=== PATIENT | female | born 1960 | race Caucasian/White ===

== ENCOUNTER → 2016-10-25 | Outpatient (CLI) | payer OTHER ==
--- NOTE | 2016-10-26 14:21 | MM ---
Reason for exam: screening (asymptomatic). Last mammogram was performed 1 year ago. History: Patient is postmenopausal. Family history of premenopausal breast cancer in mother at age 46 and breast cancer in grandmother at age 76. Excisional biopsy of the left breast, October 2002. Excisional biopsy of the right breast, January 1987. Physical Findings: A clinical breast exam by your physician is recommended on an annual basis and results should be correlated with mammographic findings. MG 3D Screening Mammo W/Cad Bilateral CC and MLO view(s) were taken. Prior study comparison: October 22, 2015, bilateral MG 3d screening mammo w/cad. September 16, 2014, bilateral MG screening mammo w CAD. September 05, 2013, bilateral digital screening mammo w/CAD. There are scattered fibroglandular densities. No significant changes when compared with prior studies. ASSESSMENT: Benign, BI-RAD 2 RECOMMENDATION: Routine screening mammogram of both breasts in 1 year.
== END | disposition home or self-care (01) ==
LOC: RADMAMWWP 09:33
PROVIDERS: ATTEND Family Medicine
DX: Z12.31 Encounter for screening mammogram for malignant neoplasm of breast (principal); Z80.3 Family history of malignant neoplasm of breast
CPT/HCPCS: 77063; G0202

== ENCOUNTER 2017-09-04 18:09 | Observation (INO) | payer BC, OTHER ==
[2017-09-04 20:04] LABS: Basophils % (A) 0 %; Eosinophils # (A) 0.1 k/uL (0-0.7); Eosinophils % (A) 1 %; HCT 43.1 % (34.0-46.0); HGB 14.7 gm/dL (11.4-16.0); Lymphocytes # (A) 1.2 k/uL (1.0-4.8); Lymphocytes % (A) 19 %; MCH 30.7 pg (25.0-35.0); MCV 90.4 fL (80.0-100.0); Mean Platelet Volume 7.7; Monocytes # (A) 0.3 k/uL (0-1.0); Monocytes % (A) 5 %; Neutrophils # (A) 4.9 k/uL (1.3-7.7); Neutrophils % (A) 74 %; Platelet Count 179 k/uL (150-450); RBC 4.77 m/uL (3.80-5.40); RDW 12.7 % (11.5-15.5); WBC 6.6 k/uL (3.8-10.6)
[2017-09-04 20:11] LABS: ALT 326 U/L (9-52); AST 441 U/L (14-36); Albumin 4.6 g/dL (3.5-5.0); Alkaline Phosphatase 136 U/L (38-126); Amylase 50 U/L (30-110); Anion Gap 11 mmol/L; Blood Urea Nitrogen 19 mg/dL (7-17); Calcium 10.2 mg/dL (8.4-10.2); Carbon Dioxide 28 mmol/L (22-30); Chloride 104 mmol/L (98-107); Glucose 100 mg/dL (74-99); Lipase 141 U/L (23-300); Potassium 4.2 mmol/L (3.5-5.1); Sodium 143 mmol/L (137-145); Total Bilirubin 1.7 mg/dL (0.2-1.3); Total Protein 7.7 g/dL (6.3-8.2)
[2017-09-04 20:12] LABS: Amorphous Sediment,Urine Occasional /hpf; Appearance,Urine Cloudy (Clear); Bacteria,Urine Occasional /hpf; Bilirubin,Urine Negative (Negative); Blood,Urine Negative (Negative); Color,Urine Yellow; Glucose,Urine (UA) Negative (Negative); Ketones,Urine Negative (Negative); Leukocyte Esterase,Urine Moderate (Negative); Mucus,Urine Rare /hpf; Nitrite,Urine Negative (Negative); Protein,Urine Negative (Negative); RBC,Urine 2 /hpf (0-5); Specific Gravity,Urine 1.012 (1.001-1.035); Squamous Epithelial Cell,Urine 4 /hpf (0-4); Urobilinogen,Urine <2.0 mg/dL (<2.0); WBC,Urine 18 /hpf (0-5)
[2017-09-04] MEDS ORDERED: KETOROLAC 30 MG/ML 1 ML VIAL IVP STA (20:58)
[2017-09-04] MEDS ORDERED: ONDANSETRON 4 MG/2 ML VIAL IVP STA (20:58)
[2017-09-04] MEDS ORDERED: SODIUM CHLORIDE 0.9% 1,000 ML IV ONE (20:58)
--- NOTE | 2017-09-04 21:01 | ED ---
General Adult HPI - General Chief complaint: Nausea/Vomiting/Diarrhea Stated complaint: Abd.pain Time Seen by Provider: 09/04/17 20:50 Source: patient, RN notes reviewed, old records reviewed Mode of arrival: ambulatory Limitations: no limitations - History of Present Illness Initial comments: 57-year-old female presents emergency Department stay chief complaint of 2 days of right upper quadrant pain 2 hours after eating. She states that it doubled over in pain. She states that she has had chills for the past few days but no specific fevers. No vomiting. Her stools are normal. No urinary symptoms. Patient denies any recent fever, chills, shortness of breath, chest pain, back pain, abdominal pain, nausea vomiting, numbness or tingling, dysuria or hematuria, constipation or diarrhea, headaches or visual changes, or any other current symptoms - Related Data Home Medications Medication Instructions Recorded Confirmed Cholecalciferol [Vitamin D3] 1,000 unit PO DAILY 09/04/17 09/04/17 Levothyroxine Sodium [Synthroid] 112 mcg PO DAILY 09/04/17 09/04/17 Multivitamins, Thera [Multivitamin 1 tab PO DAILY 09/04/17 09/04/17 (formulary)] buPROPion HCL [Wellbutrin SR] 150 mg PO BID 09/04/17 09/04/17 Allergies Allergy/AdvReac Type Severity Reaction Status Date / Time No Known Allergies Allergy Verified 09/04/17 20:59 Review of Systems ROS Statement: Those systems with pertinent positive or pertinent negative responses have been documented in the HPI. ROS Other: All systems not noted in ROS Statement are negative. Past Medical History Past Medical History: No Reported History History of Any Multi-Drug Resistant Organisms: None Reported Past Surgical History: Appendectomy, Orthopedic Surgery Additional Past Surgical History / Comment(s): varicose veins carpel tunnel Past Psychological History: No Psychological Hx Reported Smoking Status: Never smoker Past Alcohol Use History: None Reported Past Drug Use History: None Reported General Exam - General Exam Comments Initial Comments: This patient is a 57-year-old female. She is pleasant. No acute distress. Limitations: no limitations General appearance: alert, in no apparent distress Head exam: Present: atraumatic, normocephalic, normal inspection Eye exam: Present: normal appearance, PERRL, EOMI. Absent: scleral icterus, conjunctival injection, periorbital swelling ENT exam: Present: normal exam, mucous membranes moist Neck exam: Present: normal inspection. Absent: tenderness, meningismus, lymphadenopathy Respiratory exam: Present: normal lung sounds bilaterally. Absent: respiratory distress, wheezes, rales, rhonchi, stridor Cardiovascular Exam: Present: regular rate, normal rhythm, normal heart sounds. Absent: systolic murmur, diastolic murmur, rubs, gallop, clicks GI/Abdominal exam: Present: soft, tenderness (Right upper quadrant tenderness.) , normal bowel sounds. Absent: distended, guarding, rebound, rigid Extremities exam: Present: normal inspection, full ROM, normal capillary refill. Absent: tenderness, pedal edema, joint swelling, calf tenderness Back exam: Present: normal inspection Neurological exam: Present: alert, oriented X3, CN II-XII intact Psychiatric exam: Present: normal affect, normal mood Skin exam: Present: warm, dry, intact, normal color. Absent: rash Course Vital Signs 09/04/17 09/04/17 19:07 22:26 Temperature 97.6 F 98.3 F Pulse Rate 81 71 Respiratory 20 18 Rate Blood Pressure 119/77 106/59 O2 Sat by Pulse 97 95 Oximetry Medical Decision Making - Medical Decision Making This patient is a pleasant 57-year-old female chief complaint of right upper quadrant pain 2 hours after eating the past 2 days. She arrives to the emergency primary survey a 4 out of 10. She does have some tenderness on exam. Advanced triage protocol was utilized. She does have elevated liver enzymes. Elevated bilirubin. I did do an ultrasound of the gallbladder. Multiple stones showed in this area. Rest with Dr. Bryson. He discussed this with the on -call urgent Dr. Vaughn. He wants the patient on Zosyn and nothing by mouth after midnight. Patient is informed of these results. Hugo the patient at this time. - Lab Data Result diagrams: 09/04/17 19:44 09/04/17 19:44 Lab Results 09/04/17 09/04/17 09/04/17 Range/Units 19:44 19:44 19:44 WBC 6.6 (3.8-10.6) k/uL RBC 4.77 (3.80-5.40) m/uL Hgb 14.7 (11.4-16.0) gm/dL Hct 43.1 (34.0-46.0) % MCV 90.4 (80.0-100.0) fL MCH 30.7 (25.0-35.0) pg MCHC 34.0 (31.0-37.0) g/dL RDW 12.7 (11.5-15.5) % Plt Count 179 (150-450) k/uL Neutrophils % 74 % Lymphocytes % 19 % Monocytes % 5 % Eosinophils % 1 % Basophils % 0 % Neutrophils # 4.9 (1.3-7.7) k/uL Lymphocytes # 1.2 (1.0-4.8) k/uL Monocytes # 0.3 (0-1.0) k/uL Eosinophils # 0.1 (0-0.7) k/uL Basophils # 0.0 (0-0.2) k/uL Sodium 143 (137-145) mmol/L Potassium 4.2 (3.5-5.1) mmol/L Chloride 104 (98-107) mmol/L Carbon Dioxide 28 (22-30) mmol/L Anion Gap 11 mmol/L BUN 19 H (7-17) mg/dL Creatinine 0.81 (0.52-1.04) mg/dL Est GFR (CKD-EPI)AfAm >90 (>60 ml/min/1.73 sqM) Est GFR (CKD-EPI)NonAf 82 (>60 ml/min/1.73 sqM) Glucose 100 H (74-99) mg/dL Plasma Lactic Acid Ramiro (0.7-2.0) mmol/L Calcium 10.2 (8.4-10.2) mg/dL Total Bilirubin 1.7 H (0.2-1.3) mg/dL AST 441 H (14-36) U/L ALT 326 H (9-52) U/L Alkaline Phosphatase 136 H (38-126) U/L Total Protein 7.7 (6.3-8.2) g/dL Albumin 4.6 (3.5-5.0) g/dL Amylase 50 (30-110) U/L Lipase 141 (23-300) U/L Urine Color Yellow Urine Appearance Cloudy H (Clear) Urine pH 7.0 (5.0-8.0) Ur Specific [place] 1.012 (1.001-1.035) Urine Protein Negative (Negative) Urine Glucose (UA) Negative (Negative) Urine Ketones Negative (Negative) Urine Blood Negative (Negative) Urine Nitrite Negative (Negative) Urine Bilirubin Negative (Negative) Urine Urobilinogen <2.0 (<2.0) mg/dL Ur Leukocyte Esterase Moderate H (Negative) Urine RBC 2 (0-5) /hpf Urine WBC 18 H (0-5) /hpf Ur Squamous Epith Cells 4 (0-4) /hpf Amorphous Sediment Occasional H (None) /hpf Urine Bacteria Occasional H (None) /hpf Urine Mucus Rare H (None) /hpf 09/04/17 Range/Units 19:44 WBC (3.8-10.6) k/uL RBC (3.80-5.40) m/uL Hgb (11.4-16.0) gm/dL Hct (34.0-46.0) % MCV (80.0-100.0) fL MCH (25.0-35.0) pg MCHC (31.0-37.0) g/dL RDW (11.5-15.5) % Plt Count (150-450) k/uL Neutrophils % % Lymphocytes % % Monocytes % % Eosinophils % % Basophils % % Neutrophils # (1.3-7.7) k/uL Lymphocytes # (1.0-4.8) k/uL Monocytes # (0-1.0) k/uL Eosinophils # (0-0.7) k/uL Basophils # (0-0.2) k/uL Sodium (137-145) mmol/L Potassium (3.5-5.1) mmol/L Chloride (98-107) mmol/L Carbon Dioxide (22-30) mmol/L Anion Gap mmol/L BUN (7-17) mg/dL Creatinine (0.52-1.04) mg/dL Est GFR (CKD-EPI)AfAm (>60 ml/min/1.73 sqM) Est GFR (CKD-EPI)NonAf (>60 ml/min/1.73 sqM) Glucose (74-99) mg/dL Plasma Lactic Acid Ramiro 0.7 (0.7-2.0) mmol/L Calcium (8.4-10.2) mg/dL Total Bilirubin (0.2-1.3) mg/dL AST (14-36) U/L ALT (9-52) U/L Alkaline Phosphatase (38-126) U/L Total Protein (6.3-8.2) g/dL Albumin (3.5-5.0) g/dL Amylase (30-110) U/L Lipase (23-300) U/L Urine Color Urine Appearance (Clear) Urine pH (5.0-8.0) Ur Specific [place] (1.001-1.035) Urine Protein (Negative) Urine Glucose (UA) (Negative) Urine Ketones (Negative) Urine Blood (Negative) Urine Nitrite (Negative) Urine Bilirubin (Negative) Urine Urobilinogen (<2.0) mg/dL Ur Leukocyte Esterase (Negative) Urine RBC (0-5) /hpf Urine WBC (0-5) /hpf Ur Squamous Epith Cells (0-4) /hpf Amorphous Sediment (None) /hpf Urine Bacteria (None) /hpf Urine Mucus (None) /hpf - Radiology Data Radiology results: report reviewed Simple up at a 6. Multiple gallstones. No dilated ducts. No free fluid. Disposition Clinical Impression: Gallstone, Elevated liver enzymes Disposition: ADMITTED IP TO THIS HOSP Condition: Stable Referrals: Sanjiv Manning DO [Primary Care Provider] - 1-2 days Time of Disposition: 22:37
--- NOTE | 2017-09-04 22:04 | US ---
EXAMINATION TYPE: US gallbladder DATE OF EXAM: 09/04/2017 COMPARISON: NONE CLINICAL HISTORY: Pain. RUQ pain and nausea EXAM MEASUREMENTS: Liver Length: 16.9 cm Gallbladder Wall: 0.4 cm CBD: 0.6 cm Right Kidney: 10.8 x 5.2 x 3.9 cm Pancreas: Obscured by bowel gas Liver: Anechoic area seen measuring 1.8 x 1.4 x 1.5 cm. Gallbladder: Multiple gallstones seen Evidence for sonographic Mejía's sign: No CBD: Upper limits Right Kidney: No hydronephrosis or masses seen Multiple gallstones visualized. Anechoic area seen in liver measuring 1.8 x 1.4 x 1.5cm. IMPRESSION: Simple hepatic cyst. Multiple gallstones. No dilated ducts. No free fluid.
[2017-09-04] MEDS ORDERED: KETOROLAC 30 MG/ML 1 ML VIAL IVP PRN (22:38)
[2017-09-04] MEDS ORDERED: NALOXONE 0.4 MG/ML 1 ML VIAL IV PRN (22:38)
[2017-09-04] MEDS ORDERED: PIPERACILLIN-TAZOBACTAM 3.375 GM in DEXTROSE/WATER 1 50ML.BAG IVPB STA (22:38)
[2017-09-04] MEDS ORDERED: MORPHINE SULFATE 4 MG/ML SYRINGE IV PRN (22:38)
[2017-09-04] MEDS: SODIUM CHLORIDE 0.9% 1,000 ML IV SCH (23:34)
[2017-09-04] MEDS ORDERED: ONDANSETRON 4 MG/2 ML VIAL IVP PRN (23:45)
[2017-09-05 07:36] LABS: Basophils % (A) 0 %; Eosinophils % (A) 2 %; HCT 38.1 % (34.0-46.0); HGB 12.8 gm/dL (11.4-16.0); Lymphocytes # (A) 0.8 k/uL (1.0-4.8); Lymphocytes % (A) 29 %; MCH 30.6 pg (25.0-35.0); MCHC 33.5 g/dL (31.0-37.0); MCV 91.3 fL (80.0-100.0); Mean Platelet Volume 7.8; Monocytes # (A) 0.2 k/uL (0-1.0); Monocytes % (A) 7 %; Neutrophils # (A) 1.7 k/uL (1.3-7.7); Neutrophils % (A) 61 %; Platelet Count 135 k/uL (150-450); RBC 4.17 m/uL (3.80-5.40); RDW 12.6 % (11.5-15.5); WBC 2.8 k/uL (3.8-10.6)
[2017-09-05] MEDS: SODIUM CHLORIDE 0.9% 1,000 ML IV SCH ×2 (08:11→18:01)
[2017-09-05 08:15] LABS: Albumin 3.5 g/dL (3.5-5.0); Calcium 9.1 mg/dL (8.4-10.2); Potassium 4.1 mmol/L (3.5-5.1); Total Bilirubin 1.9 mg/dL (0.2-1.3)
[2017-09-05] MEDS: PANTOPRAZOLE 40 MG/10 ML VIAL IV SCH (08:15)
[2017-09-05] MEDS: PIPERACILLIN-TAZOBACTAM 3.375 GM in DEXTROSE/WATER 1 50ML.BAG IVPB SCH ×3 (09:50→23:51)
--- NOTE | 2017-09-05 10:57 | P.GSCN ---
<Shanna Cruz Chelly - Last Filed: 09/05/17 10:44> History of Present Illness Consult date: 09/05/17 Reason for Consult: Abdominal pain History of present illness: A very pleasant 57-year-old female who has no significant past medical history presented to the emergency room to be evaluated for a chief complaint of developing a sudden onset of right upper quadrant abdominal pain 2 hours after eating. Patient stated the symptoms the day that she came into the emergency room was so severe that she doubled over with pain felt a wave of nausea did not vomit. Patient states that she has had not any prior episodes patient stated that at home she been experiencing mild left upper abdominal pain but not as intense as it was sedated she came into the emergency room.. Patient has no significant past surgical history except for an orthopedic surgery and appendectomy. No significant past medical history. Labs in the emergency room lipase 141 amylase 50 AST 441, ALT 326, alkaline phosphatase 136. This morning the AST is elevated to 1089 ALT 909. Patient continues to report having right upper quadrant abdominal pain. Ultrasound gallbladder multiple gallstones seen common bile duct upper limits Given the above clinical presentation a surgical consultation has been requested Review of Systems Essentially unremarkable except as mentioned in the present illness Past Medical History Past Medical History: No Reported History Additional Past Medical History / Comment(s): arthritis in thumb, carpal tunnel syndrome History of Any Multi-Drug Resistant Organisms: None Reported Past Surgical History: Appendectomy, Orthopedic Surgery Additional Past Surgical History / Comment(s): varicose veins stripping, carpel tunnel sx, and , third molar removal Past Anesthesia/Blood Transfusion Reactions: Postoperative Nausea & Vomiting ( PONV) Past Psychological History: Depression Smoking Status: Never smoker Past Alcohol Use History: None Reported Past Drug Use History: None Reported - Past Family History Mother Family Medical History: Cancer Additional Family Medical History / Comment(s): breast Medications and Allergies Home Medications Medication Instructions Recorded Confirmed Type Cholecalciferol [Vitamin D3] 1,000 unit PO DAILY 09/04/17 09/04/17 History Levothyroxine Sodium [Synthroid] 112 mcg PO DAILY 09/04/17 09/04/17 History Multivitamins, Thera [Multivitamin 1 tab PO DAILY 09/04/17 09/04/17 History (formulary)] buPROPion HCL [Wellbutrin SR] 150 mg PO BID 09/04/17 09/04/17 History Allergies Allergy/AdvReac Type Severity Reaction Status Date / Time No Known Allergies Allergy Verified 09/04/17 20:59 Surgical - Exam Vital Signs Temp Pulse Resp BP Pulse Ox 97.6 F 81 20 119/77 97 09/04/17 19:07 09/04/17 19:07 09/04/17 19:07 09/04/17 19:07 09/04/17 19:07 GENERAL APPEARANCE: 57-year-old female patient is alert, oriented, in no acute distress. States pain medication effective for pain control VITAL SIGNS: Reviewed HEENT: Head is normocephalic and atraumatic. Pupils are equal and reactive. The nares are patent. Oropharynx is clear without lesions. NECK: Supple without lymphadenopathy. Traches midline. HEART: S1, S2. Regular rate and rhythm. No murmur noted LUNGS: No crackles or wheezes are heard. Adequate air movement bilaterally on room air ABDOMEN: Soft, tenderness to the right upper quadrant nondistended with good bowel sounds. No peritoneal signs. No palpable organomegaly or masses. Reports waves of nausea no emesis no frequent stooling no difficulty in urinating EXTREMITIES: Normal skin color and turgor. No cyanosis, rash, ulceration, clubbing or edema. Radial pedal pulses are 2/4 bilaterally. NEUROLOGICAL: No focal deficits. Strength and sensation are grossly intact. Results - Labs 09/05/17 07:12 09/05/17 07:12 Abnormal Lab Results - Last 24 Hours (Table) 09/04/17 09/04/17 09/05/17 Range/Units 19:44 19:44 07:12 WBC 2.8 L (3.8-10.6) k/uL Plt Count 135 L (150-450) k/uL Lymphocytes # 0.8 L (1.0-4.8) k/uL Chloride (98-107) mmol/L BUN 19 H (7-17) mg/dL Glucose 100 H (74-99) mg/dL Total Bilirubin 1.7 H (0.2-1.3) mg/dL AST 441 H (14-36) U/L ALT 326 H (9-52) U/L Alkaline Phosphatase 136 H (38-126) U/L Total Protein (6.3-8.2) g/dL Urine Appearance Cloudy H (Clear) Ur Leukocyte Esterase Moderate H (Negative) Urine WBC 18 H (0-5) /hpf Amorphous Sediment Occasional H (None) /hpf Urine Bacteria Occasional H (None) /hpf Urine Mucus Rare H (None) /hpf 09/05/17 Range/Units 07:12 WBC (3.8-10.6) k/uL Plt Count (150-450) k/uL Lymphocytes # (1.0-4.8) k/uL Chloride 110 H (98-107) mmol/L BUN (7-17) mg/dL Glucose (74-99) mg/dL Total Bilirubin 1.9 H (0.2-1.3) mg/dL AST 1089 H (14-36) U/L ALT 909 H (9-52) U/L Alkaline Phosphatase (38-126) U/L Total Protein 6.0 L (6.3-8.2) g/dL Urine Appearance (Clear) Ur Leukocyte Esterase (Negative) Urine WBC (0-5) /hpf Amorphous Sediment (None) /hpf Urine Bacteria (None) /hpf Urine Mucus (None) /hpf Diabetes panel 09/04/17 09/05/17 Range/Units 19:44 07:12 Sodium 143 145 (137-145) mmol/L Potassium 4.2 4.1 (3.5-5.1) mmol/L Chloride 104 110 H (98-107) mmol/L Carbon Dioxide 28 29 (22-30) mmol/L BUN 19 H 16 (7-17) mg/dL Creatinine 0.81 0.89 (0.52-1.04) mg/dL Glucose 100 H 83 (74-99) mg/dL Calcium 10.2 9.1 (8.4-10.2) mg/dL AST 441 H 1089 H (14-36) U/L ALT 326 H 909 H (9-52) U/L Alkaline Phosphatase 136 H 126 (38-126) U/L Total Protein 7.7 6.0 L (6.3-8.2) g/dL Albumin 4.6 3.5 (3.5-5.0) g/dL Calcium panel 09/04/17 09/05/17 Range/Units 19:44 07:12 Calcium 10.2 9.1 (8.4-10.2) mg/dL Albumin 4.6 3.5 (3.5-5.0) g/dL Pituitary panel 09/04/17 09/05/17 Range/Units 19:44 07:12 Sodium 143 145 (137-145) mmol/L Potassium 4.2 4.1 (3.5-5.1) mmol/L Chloride 104 110 H (98-107) mmol/L Carbon Dioxide 28 29 (22-30) mmol/L BUN 19 H 16 (7-17) mg/dL Creatinine 0.81 0.89 (0.52-1.04) mg/dL Glucose 100 H 83 (74-99) mg/dL Calcium 10.2 9.1 (8.4-10.2) mg/dL Adrenal panel 09/04/17 09/05/17 Range/Units 19:44 07:12 Sodium 143 145 (137-145) mmol/L Potassium 4.2 4.1 (3.5-5.1) mmol/L Chloride 104 110 H (98-107) mmol/L Carbon Dioxide 28 29 (22-30) mmol/L BUN 19 H 16 (7-17) mg/dL Creatinine 0.81 0.89 (0.52-1.04) mg/dL Glucose 100 H 83 (74-99) mg/dL Calcium 10.2 9.1 (8.4-10.2) mg/dL Total Bilirubin 1.7 H 1.9 H (0.2-1.3) mg/dL AST 441 H 1089 H (14-36) U/L ALT 326 H 909 H (9-52) U/L Alkaline Phosphatase 136 H 126 (38-126) U/L Total Protein 7.7 6.0 L (6.3-8.2) g/dL Albumin 4.6 3.5 (3.5-5.0) g/dL Assessment and Plan Assessment: Impression Present on admission acute onset right upper quadrant pain with nausea suspect due to acute cholelithiasis Ultrasound gallbladder multiple gallstones seen Elevated AST and ALT with a mildly elevated total bilirubin Plan Consult GI service await recommendations Nothing by mouth until decision is made on treatment options Pain control IV fluid for hydration DVT and GI prophylaxis Further surgical recommendations pending Will follow with you Surgical consultation note dictated for Dr. reed The above impression and plan of care have been discussed and directed by signing physician. Shanna Cruz nurse practitioner acting as scribe for signing physician. <Avelino Reed - Last Filed: 09/06/17 12:37> Surgical - Exam Vital Signs Temp Pulse Resp BP Pulse Ox 97.6 F 81 20 119/77 97 09/04/17 19:07 09/04/17 19:07 09/04/17 19:07 09/04/17 19:07 09/04/17 19:07 Results - Labs 09/06/17 06:07 09/06/17 06:07 Abnormal Lab Results - Last 24 Hours (Table) 09/06/17 09/06/17 Range/Units 06:07 06:07 WBC 3.2 L (3.8-10.6) k/uL Plt Count 149 L (150-450) k/uL Chloride 110 H (98-107) mmol/L AST 506 H (14-36) U/L ALT 753 H (9-52) U/L Alkaline Phosphatase 140 H (38-126) U/L Total Protein 6.1 L (6.3-8.2) g/dL Microbiology - Last 24 Hours (Table) 09/04/17 21:17 Blood Culture - Preliminary Blood No Growth after 24 hours Diabetes panel 09/06/17 Range/Units 06:07 Sodium 144 (137-145) mmol/L Potassium 4.0 (3.5-5.1) mmol/L Chloride 110 H (98-107) mmol/L Carbon Dioxide 26 (22-30) mmol/L BUN 10 (7-17) mg/dL Creatinine 0.92 (0.52-1.04) mg/dL Glucose 78 (74-99) mg/dL Calcium 9.3 (8.4-10.2) mg/dL AST 506 H (14-36) U/L ALT 753 H (9-52) U/L Alkaline Phosphatase 140 H (38-126) U/L Total Protein 6.1 L (6.3-8.2) g/dL Albumin 3.5 (3.5-5.0) g/dL Calcium panel 09/06/17 Range/Units 06:07 Calcium 9.3 (8.4-10.2) mg/dL Albumin 3.5 (3.5-5.0) g/dL Pituitary panel 09/06/17 Range/Units 06:07 Sodium 144 (137-145) mmol/L Potassium 4.0 (3.5-5.1) mmol/L Chloride 110 H (98-107) mmol/L Carbon Dioxide 26 (22-30) mmol/L BUN 10 (7-17) mg/dL Creatinine 0.92 (0.52-1.04) mg/dL Glucose 78 (74-99) mg/dL Calcium 9.3 (8.4-10.2) mg/dL Adrenal panel 09/06/17 Range/Units 06:07 Sodium 144 (137-145) mmol/L Potassium 4.0 (3.5-5.1) mmol/L Chloride 110 H (98-107) mmol/L Carbon Dioxide 26 (22-30) mmol/L BUN 10 (7-17) mg/dL Creatinine 0.92 (0.52-1.04) mg/dL Glucose 78 (74-99) mg/dL Calcium 9.3 (8.4-10.2) mg/dL Total Bilirubin 0.9 (0.2-1.3) mg/dL AST 506 H (14-36) U/L ALT 753 H (9-52) U/L Alkaline Phosphatase 140 H (38-126) U/L Total Protein 6.1 L (6.3-8.2) g/dL Albumin 3.5 (3.5-5.0) g/dL Assessment and Plan Plan: The patient's liver flush test will be reevaluated in a.m. If they decreased she will undergo laparoscopic cholestatic.
--- NOTE | 2017-09-05 13:10 | P.CONS ---
History of Present Illness - Reason for Consult Consult date: 09/05/17 Abdominal pain elevated liver enzymes Requesting physician: Pawan Faith - History of Present Illness 57-year-old female admitted with acute epigastric pain 2 days with elevated liver enzymes. No history of this type of pain. No history of hepatitis. Denies fever chills hematemesis hematochezia melena. White count 2.8-6.6. Hemoglobin 12.8-14.7. Platelet 135-179. Total bilirubin 1.7-1.9. AST 441- 1089. ALT 326-909. Alkaline phosphatase 126-136. Hepatitis screen pending. No changes in medications. No history of alcoholism. Reports darker colored urine denies acholic stools. Ultrasound abdomen cholelithiasis CBD 0.6 cm. Review of Systems RConstitutional: Denies fever, chills, sweats, weight gain, or loss. HEENT: Negative for migraines, blurred vision or loss, earaches, drainage, tinnitus, oral mucosal lesions, dysphagia, or odynophagia. CARDIAC: Negative for chest pain, arrhythmias, or palpitation. RESPIRATORY: Negative for shortness of breath, hemoptysis, cough, or sputum production. GI: See HPI for pertinent findings. : Negative for hematuria, urgency, frequency, polyuria, or dysuria. GYNc: Denies possibility of . Negative vaginal discharge. MUSCULOSKELETAL: Negative for muscle aches, swelling, arthritis, and arthralgias. NEUROLOGIC: Negative for stroke or TIA. ENDOCRINE: Negative for thyroid problems. SKIN: Negative for rash or itching. PSYCHIATRIC: History of depression. Past Medical History Past Medical History: No Reported History Additional Past Medical History / Comment(s): arthritis in thumb, carpal tunnel syndrome History of Any Multi-Drug Resistant Organisms: None Reported Past Surgical History: Appendectomy, Orthopedic Surgery Additional Past Surgical History / Comment(s): varicose veins stripping, carpel tunnel sx, and , third molar removal Past Anesthesia/Blood Transfusion Reactions: Postoperative Nausea & Vomiting ( PONV) Past Psychological History: Depression Smoking Status: Never smoker Past Alcohol Use History: None Reported Past Drug Use History: None Reported - Past Family History Mother Family Medical History: Cancer Additional Family Medical History / Comment(s): breast Medications and Allergies Home Medications Medication Instructions Recorded Confirmed Type Cholecalciferol [Vitamin D3] 1,000 unit PO DAILY 09/04/17 09/04/17 History Levothyroxine Sodium [Synthroid] 112 mcg PO DAILY 09/04/17 09/04/17 History Multivitamins, Thera [Multivitamin 1 tab PO DAILY 09/04/17 09/04/17 History (formulary)] buPROPion HCL [Wellbutrin SR] 150 mg PO BID 09/04/17 09/04/17 History Allergies Allergy/AdvReac Type Severity Reaction Status Date / Time No Known Allergies Allergy Verified 09/04/17 20:59 Physical Exam Vitals: Vital Signs Temp Pulse Pulse Resp BP BP BP 09/05/17 11:46 98.1 F 60 16 107/66 09/05/17 07:30 98.2 F 63 16 98/62 09/05/17 00:00 98.7 F 72 18 135/76 09/04/17 23:35 74 18 99/56 09/04/17 22:26 98.3 F 71 18 106/59 09/04/17 19:07 97.6 F 81 20 119/77 Pulse Ox 09/05/17 11:46 98 09/05/17 07:30 99 09/05/17 00:00 100 09/04/17 23:35 97 09/04/17 22:26 95 09/04/17 19:07 97 Intake and Output 09/04/17 09/05/17 09/05/17 22:59 06:59 14:59 Intake Total 0 Balance 0 Intake: Oral 0 Other: # Voids 2 Weight 102.058 kg General appearance: The patient is alert, oriented, in no acute distress. HET: Head is normocephalic and atraumatic. Pupils are equal and reactive. Oropharynx is clear without lesions. Neck: Supple without lymphadenopathy. Trachea midline. Heart: S1 S2. Regular rate and rhythm. Lungs: No crackles or wheezes are heard. Abdomen: Soft, mild midepigastric tenderness, nondistended with bowel sounds. No peritoneal signs. No palpable organomegaly or masses. Extremities: Normal skin color and turgor. No cyanosis, rash, ulceration, clubbing, or edema. Radial and pedal pulses are 2/4 bilaterally. Neurological: No focal deficits. Strength and sensation are grossly intact. Results CBC & Chem 7: 09/05/17 07:12 09/05/17 07:12 Labs: Abnormal Lab Results - Last 24 Hours (Table) 09/04/17 09/04/17 09/05/17 Range/Units 19:44 19:44 07:12 WBC 2.8 L (3.8-10.6) k/uL Plt Count 135 L (150-450) k/uL Lymphocytes # 0.8 L (1.0-4.8) k/uL Chloride (98-107) mmol/L BUN 19 H (7-17) mg/dL Glucose 100 H (74-99) mg/dL Total Bilirubin 1.7 H (0.2-1.3) mg/dL AST 441 H (14-36) U/L ALT 326 H (9-52) U/L Alkaline Phosphatase 136 H (38-126) U/L Total Protein (6.3-8.2) g/dL Urine Appearance Cloudy H (Clear) Ur Leukocyte Esterase Moderate H (Negative) Urine WBC 18 H (0-5) /hpf Amorphous Sediment Occasional H (None) /hpf Urine Bacteria Occasional H (None) /hpf Urine Mucus Rare H (None) /hpf 09/05/17 Range/Units 07:12 WBC (3.8-10.6) k/uL Plt Count (150-450) k/uL Lymphocytes # (1.0-4.8) k/uL Chloride 110 H (98-107) mmol/L BUN (7-17) mg/dL Glucose (74-99) mg/dL Total Bilirubin 1.9 H (0.2-1.3) mg/dL AST 1089 H (14-36) U/L ALT 909 H (9-52) U/L Alkaline Phosphatase (38-126) U/L Total Protein 6.0 L (6.3-8.2) g/dL Urine Appearance (Clear) Ur Leukocyte Esterase (Negative) Urine WBC (0-5) /hpf Amorphous Sediment (None) /hpf Urine Bacteria (None) /hpf Urine Mucus (None) /hpf US - abdomen: report reviewed (Dr. Zheng) Assessment and Plan (1) Abdominal pain Narrative/Plan: Epigastric pain 2 days with elevated liver enzymes cholelithiasis possible choledocholithiasis Current Visit: Yes Status: Acute Code(s): R10.9 - UNSPECIFIED ABDOMINAL PAIN SNOMED Code(s): 87499004 (2) Cholelithiasis Current Visit: Yes Status: Acute Code(s): K80.20 - CALCULUS OF GALLBLADDER W /O CHOLECYSTITIS W/O OBSTRUCTION SNOMED Code(s): 319727116 (3) Elevated liver enzymes Current Visit: Yes Status: Acute Code(s): R74.8 - ABNORMAL LEVELS OF OTHER SERUM ENZYMES SNOMED Code(s): 327723026 Plan: 1. Hepatitis screen. 2. Clear liquid diet nothing by mouth after midnight. Tentative ERCP tomorrow pending morning chemistries. 3. General surgical consult. 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 The patient has indicated understanding and acceptance of the risks and procedures discussed. Thank you for this kind referral and the opportunity to participate in the care of your patient. This consultation was discussed with Dr. Zheng. The impression and plan of care have been directed as dictated.
--- NOTE | 2017-09-05 17:47 | HP ---
HISTORY AND PHYSICAL DATE OF SERVICE: 09/05/2017 CHIEF COMPLAINT: Abdominal pain, upper abdomen. HISTORY OF PRESENT ILLNESS: This 57-year-old woman with a past medical history of multiple medical problems, including history of DJD, history of carpal tunnel syndrome, history of depression, being followed by Dr. Sanjiv Manning in the outpatient setting, was complaining of right upper quadrant abdominal pain for the last 2 nights. The pain was there 2 hours after eating. The pain was severe; patient doubling over because of the pain. The patient's pain was radiating to the right back area as well as the right shoulder area. The patient came to [facility] and evaluated. Gallbladder ultrasound noted a simple hepatic cyst and multiple gallstones also. There is no history of any fever, rigor or chills. No history of headache, loss of consciousness, seizures. PAST MEDICAL HISTORY: 1. History of DJD. 2. History of carpal tunnel syndrome. 3. History of appendectomy. 4. History of depression. HOME MEDICATIONS: 1. Wellbutrin XR 150 mg p.o. b.i.d. 2. Multivitamins 1 p.o. daily. 3. Synthroid 112 mcg p.o. daily. 4. Vitamin D3 1000 mg daily. ALLERGIES: NONE. FAMILY HISTORY: History of breast cancer in the family. SOCIAL HISTORY: No history of smoking. No history of alcohol intake. REVIEW OF SYSTEMS: ENT: No diminished hearing. No diminished vision. CARDIOVASCULAR SYSTEM: No angina, palpitations. RESPIRATORY SYSTEM: No cough, hemoptysis. GI: As mentioned earlier. : No dysuria or retention. NERVOUS SYSTEM: No numbness, weakness. ALLERGY/IMMUNOLOGY: No asthma, hayfever. MUSCULOSKELETAL: As mentioned earlier. HEMATOLOGY/ONCOLOGY: No history of anemia. ENDOCRINE: Hypothyroidism. CONSTITUTIONAL: As mentioned earlier. DERMATOLOGY: Negative. RHEUMATOLOGY: Negative. PSYCHIATRY: As mentioned earlier. PHYSICAL EXAMINATION: Patient alert and oriented x3. Pulse 60, blood pressure 107/66, respiration 16, temperature 98.1, pulse ox 98% on room air. HEENT: Conjunctivae normal. Oral mucosa moist. NECK: No jugular venous distention. No carotid bruit. No lymph node enlargement. CARDIOVASCULAR SYSTEM: S1, S2 muffled. No S3. No S4. RESPIRATORY SYSTEM: Breath sounds diminished at the bases. No rhonchi. No crackles. ABDOMEN: Soft. Mild diffuse tenderness in the right upper quadrant but no guarding or rigidity. No mass palpable. LEGS: No edema. No swelling. NERVOUS SYSTEM: Higher functions as mentioned earlier. Moves all 4 limbs. No focal motor or sensory deficit. LYMPHATICS: No lymph node palpable in neck, axillae or groin. SKIN: No ulcer, rash, bleeding. LABS: WBC 2.3, hemoglobin 12.8. Total bilirubin is 1.7, AST is 441, ALT is 326. Amylase, lipase negative. UA with 18 WBCs. ASSESSMENT: 1. Acute right upper quadrant abdominal pain; possibly cholelithiasis. 2. Multiple gallstones. 3. Increased elevated AST, ALT with total bilirubin, possibly secondary to gallstones. 4. Possible urinary tract infection. 5. Mild leukopenia. RECOMMENDATIONS AND DISCUSSION: In this 57-year-old woman who presented with multiple medical issues, we will monitor the patient closely, continue the current medications, continue symptomatic treatment. IV antibiotics were initiated. Will follow the patient closely with Surgery and Gastroenterology. Guarded prognosis because of the multiple complex medical issues.. Further recommendations to follow. A copy of this dictation is being forwarded to Dr. Manning, who is the primary physician. I will restart the home dose of levothyroxine as well as bupropion. DVT prophylaxis. Incentive spirometry. Proton pump inhibitors. IV fluids. MMCARLOSL / LAUREENN: [id number] /
[2017-09-05 19:12] LABS: Hepatitis A Antibody IgM Non-Reactive (Non-Reactive); Hepatitis B Core IgM Non-Reactive (Non-Reactive)
[2017-09-05] MEDS: HEPARIN SODIUM,PORCINE 5,000 UNIT/ML 1 ML VIAL SQ SCH (20:44)
[2017-09-05] MEDS: buPROPion SR 150 MG TABLET.ER PO SCH (20:44)
[2017-09-06] MEDS: SODIUM CHLORIDE 0.9% 1,000 ML IV SCH ×4 (04:22→16:51)
[2017-09-06] MEDS: LEVOTHYROXINE 112 MCG TAB PO SCH (05:53)
[2017-09-06 07:25] LABS: Basophils % (A) 1 %; Eosinophils # (A) 0.1 k/uL (0-0.7); Eosinophils % (A) 2 %; HCT 39.6 % (34.0-46.0); HGB 12.9 gm/dL (11.4-16.0); Lymphocytes # (A) 1.2 k/uL (1.0-4.8); Lymphocytes % (A) 37 %; MCH 30.1 pg (25.0-35.0); MCHC 32.6 g/dL (31.0-37.0); MCV 92.5 fL (80.0-100.0); Mean Platelet Volume 7.9; Monocytes # (A) 0.2 k/uL (0-1.0); Monocytes % (A) 6 %; Neutrophils # (A) 1.7 k/uL (1.3-7.7); Neutrophils % (A) 51 %; Platelet Count 149 k/uL (150-450); RBC 4.28 m/uL (3.80-5.40); RDW 12.5 % (11.5-15.5); WBC 3.2 k/uL (3.8-10.6)
[2017-09-06 07:37] LABS: Albumin 3.5 g/dL (3.5-5.0); Calcium 9.3 mg/dL (8.4-10.2); Total Bilirubin 0.9 mg/dL (0.2-1.3); Total Protein 6.1 g/dL (6.3-8.2)
[2017-09-06] MEDS ORDERED: INDOMETHACIN 50MG SUPPOSITORY RECTAL ONE (08:14)
[2017-09-06] MEDS: PANTOPRAZOLE 40 MG/10 ML VIAL IV SCH (08:39)
[2017-09-06] MEDS: PIPERACILLIN-TAZOBACTAM 3.375 GM in DEXTROSE/WATER 1 50ML.BAG IVPB SCH ×3 (08:42→23:02)
[2017-09-06] MEDS: buPROPion SR 150 MG TABLET.ER PO SCH ×2 (09:51→21:07)
[2017-09-06] MEDS: HEPARIN SODIUM,PORCINE 5,000 UNIT/ML 1 ML VIAL SQ SCH ×2 (09:51→21:07)
[2017-09-06] MEDS ORDERED: IV FLUID CONTINUATION 1,000 ML IV ONE (12:09)
--- NOTE | 2017-09-06 12:37 | P.PN ---
Progress Note - Text Progress Note Date: 09/06/17 The patient appears to be pain-free this morning. Her liver function tests have decreased significantly. Her ERCP was canceled today. The patient will undergo laparoscopic cholecystectomy today.
[2017-09-06] MEDS ORDERED: fentaNYL (PF) 50 MCG/ML 2 ML AMP ONE (13:20)
[2017-09-06] MEDS ORDERED: PROPOFOL 10 MG/ML 20 ML VIAL IV ONE (13:20)
[2017-09-06] MEDS ORDERED: SUCCINYLCHOLINE CHLORIDE 100 MG/5 ML SYR IV ONE (13:20)
[2017-09-06] MEDS ORDERED: GLYCOPYRROLATE 0.2 MG/ML 2 ML VIAL ONE (13:20)
[2017-09-06] MEDS ORDERED: LIDOCAINE 1% INJ 10MG/ML (20 ML MDV) ONE (13:20)
[2017-09-06] MEDS ORDERED: MIDAZOLAM 2 MG/2 ML VIAL ONE (13:20)
[2017-09-06] MEDS ORDERED: ROCURONIUM BROMIDE 10 MG/ML 10 ML VIAL IV ONE (13:20)
[2017-09-06] MEDS ORDERED: NEOSTIGMINE 1 MG/ML 10 ML VIAL ONE (13:20)
[2017-09-06] MEDS ORDERED: BUPIVACAINE (PF) 0.25% 30 ML VIAL SQ ONE (13:40)
--- NOTE | 2017-09-06 13:55 | P.OP ---
Date of Procedure: 09/06/17 Preoperative Diagnosis: Cholecystitis, cholelithiasis Postoperative Diagnosis: Cholecystitis Cholelithiasis Hydrops of gallbladder Procedure(s) Performed: Laparoscopic cholecystectomy Anesthesia: ALETHEA Surgeon: Avelino Carter Estimated Blood Loss (ml): 10 Pathology: other (Gallbladder) Condition: stable Disposition: PACU Description of Procedure: The patient was placed on the operating table. The patient received a general endotracheal tube anesthesia. The patients abdomen was prepped and draped in the usual sterile fashion. Through an infraumbilical stab incision, the fascia of the anterior abdominal wall was grasped with a pair of Kochers and then the Veress needle was placed in the peritoneal cavity. Position of the Veress needle was confirmed with positive drop test. The abdomen was then insufflated. After adequate insufflation, the 10 mm trocar was placed in the peritoneal cavity. Following this the laparoscope was placed in the peritoneal cavity. The patient was placed in the head-up, right side up position and then a 5 mm trocar was placed in the right lateral and right subcostal position under direct visualization. A 8 mm trocar was placed in the epigastric position. The gallbladder was grasped in the fundus and infundibulum. Traction on the gallbladder was placed in the lateral and the cephalad positions. The triangle of Calot was visualized.. The cystic duct was bluntly dissected until the union of the cystic duct and common bile duct was seen. The cystic duct was then divided and sealed with the Harmonic scissors. A PDS Endoloop was then placed throughout the cystic duct stump. The cystic artery divided and sealed with the Harmonic scissors. The gallbladder was then removed from the liver bed using Harmonic scissors. The gallbladder was then extracted through the epigastric port site. Operative field was checked for any bleeding spots and Harmonic scissors was used to coagulate the liver bed. The abdomen was irrigated. The trocars were removed. The skin was closed using interrupted 3-0 Vicryl suture. Dermabond dressing were applied. The patient tolerated the procedure well.
--- NOTE | 2017-09-06 14:32 | P.PN ---
Subjective Progress Note Date: 09/06/17 Principal diagnosis: abdominal pain Seen earlier this morning around 0800. LFTs improved. Abdominal pain improved. Afebrile. Objective - Vital Signs Vital signs: Vital Signs Temp 97.4 F L 09/06/17 14:13 Pulse 62 09/06/17 14:13 Resp 17 09/06/17 14:13 BP 139/71 09/06/17 14:13 Pulse Ox 98 09/06/17 14:13 Intake & Output 09/05/17 09/06/17 09/06/17 18:59 06:59 18:59 Intake Total 560 900 Output Total 10 Balance 560 890 Intake: IV 900 Oral 560 Output: Estimated Blood Loss 10 Other: # Voids 1 1 - Constitutional General appearance: Present: average body habitus, no acute distress - EENT Eyes: Present: normal appearance - Neck Neck: Present: normal ROM - Respiratory Respiratory: bilateral: CTA - Cardiovascular Rhythm: regular Heart sounds: normal: S1, S2 - Gastrointestinal General gastrointestinal: Present: soft - Neurologic Neurologic: Present: CNII-XII intact - Psychiatric Psychiatric: Present: A&O x's 3 - Labs CBC & Chem 7: 09/06/17 06:07 09/06/17 06:07 Labs: Abnormal Lab Results - Last 24 Hours (Table) 09/06/17 09/06/17 Range/Units 06:07 06:07 WBC 3.2 L (3.8-10.6) k/uL Plt Count 149 L (150-450) k/uL Chloride 110 H (98-107) mmol/L AST 506 H (14-36) U/L ALT 753 H (9-52) U/L Alkaline Phosphatase 140 H (38-126) U/L Total Protein 6.1 L (6.3-8.2) g/dL Microbiology - Last 24 Hours (Table) 09/04/17 21:17 Blood Culture - Preliminary Blood No Growth after 24 hours Assessment and Plan (1) Abdominal pain Narrative/Plan: Epigastric pain 2 days with elevated liver enzymes cholelithiasis possible choledocholithiasis Current Visit: Yes Status: Acute Code(s): R10.9 - UNSPECIFIED ABDOMINAL PAIN SNOMED Code(s): 61898280 (2) Cholelithiasis Current Visit: Yes Status: Acute Code(s): K80.20 - CALCULUS OF GALLBLADDER W /O CHOLECYSTITIS W/O OBSTRUCTION SNOMED Code(s): 806709195 (3) Elevated liver enzymes Narrative/Plan: improved suspect passage of choledocholithiasis Current Visit: Yes Status: Acute Code(s): R74.8 - ABNORMAL LEVELS OF OTHER SERUM ENZYMES SNOMED Code(s): 126169309 Plan: 1. Lap ruth scheduled today. ERCP not indicated secondary to improvement in LFts. Assessment and plan of care discussed with Dr. Zheng
[2017-09-06] MEDS: KETOROLAC 30 MG/ML 1 ML VIAL IVP PRN (17:52)
--- NOTE | 2017-09-06 18:51 | PN ---
PROGRESS NOTE DATE OF SERVICE: 09/06/2017 This 57-year-old woman was admitted with right upper quadrant abdominal pain had features of cholelithiasis and cholecystitis. Patient underwent laparoscopic cholecystectomy by Dr. Carter. There is no history of chest pain. No palpitations. No headache, loss of consciousness, seizures. PHYSICAL EXAM: Alert and oriented x3. Pulse 74, blood pressure 140/77, respiration 16, temperature normal, pulse ox 97% on room air. HEENT: Conjunctivae normal. Oral mucosa is moist. NECK: No jugular venous distention. No carotid bruit. No lymph node enlargement. CARDIOVASCULAR: S1, S2 muffled. RESPIRATORY: Breath sounds diminished in the bases. No rhonchi, no crackles. ABDOMEN: Soft, status post surgery. LEGS: No edema. NERVOUS SYSTEM: No focal deficits. LABS: AST is 506 and ALT 753, alkaline phosphatase 140. Hepatitis panel is nonreactive. ASSESSMENT: 1. Acute cholelithiasis and cholecystitis status post laparoscopic cholecystectomy. 2. Multiple gallstones. 3. Elevated AST, ALT, total bilirubin, possibly secondary to gallstones. 4. Possibly urinary tract infection. 5. Mild leukopenia, present on admission. RECOMMENDATION AND DISCUSSION: I recommend to continue current management and treatment, otherwise at this time will repeat labs. Closely follow with Surgery. Pain medications and IV antibiotics. DVT prophylaxis, proton pump inhibitors. Further recommendations to follow. See orders for details. Closely follow with Surgery. Stable, overall prognosis guarded. Further recommendations to follow. MMODL / IJN: [id number] /
[2017-09-07] MEDS: LEVOTHYROXINE 112 MCG TAB PO SCH (06:15)
[2017-09-07] MEDS: KETOROLAC 30 MG/ML 1 ML VIAL IVP PRN (06:17)
[2017-09-07 07:18] LABS: Albumin 3.3 g/dL (3.5-5.0); Potassium 3.7 mmol/L (3.5-5.1); Total Bilirubin 0.5 mg/dL (0.2-1.3); Total Protein 5.8 g/dL (6.3-8.2)
[2017-09-07] MEDS: buPROPion SR 150 MG TABLET.ER PO SCH (08:21)
[2017-09-07] MEDS: PANTOPRAZOLE 40 MG/10 ML VIAL IV SCH (08:22)
[2017-09-07] MEDS: HEPARIN SODIUM,PORCINE 5,000 UNIT/ML 1 ML VIAL SQ SCH (08:22)
[2017-09-07] MEDS: PIPERACILLIN-TAZOBACTAM 3.375 GM in DEXTROSE/WATER 1 50ML.BAG IVPB SCH (08:22)
[2017-09-07] MEDS: SODIUM CHLORIDE 0.9% 1,000 ML IV SCH (08:23)
[2017-09-07 09:08] VITALS: BP 105/67; PULSE 81; RESP 18; TEMP 97.8
--- NOTE | 2017-09-07 11:12 | P.PN ---
Subjective Progress Note Date: 09/07/17 57-year-old female who presented to emergency room for chief complaint of developing a sudden onset of right upper quadrant pain 2 hours after eating a meal. Patient stated the pain doubled over with a wave of nausea. Patient denied any prior episodes. Ultrasound of the gallbladder showed multiple gallstones seen in the common bile duct. AST and ALT were elevated. Patient was seen by GI service. Dr. Sahni indicated no ERCP at this time the liver function studies were improving. Abdominal pain was improving patient was afebrile on the day of discharge patient was up ambulatory on the unit analgesics effective for pain control tolerating diet passing gas no nausea no vomiting abdomen was soft On September 06 patient underwent a laparoscopic cholecystectomy for cholecystitis, cholelithiasis and hydrops of gallbladder Objective - Vital Signs Vital signs: Vital Signs Temp 97.8 F 09/07/17 08:02 Pulse 81 09/07/17 08:02 Resp 18 09/07/17 08:02 BP 105/67 09/07/17 08:02 Pulse Ox 92 L 09/07/17 08:02 Intake & Output 09/06/17 09/07/17 09/07/17 18:59 06:59 18:59 Intake Total 900 960 200 Output Total 10 Balance 890 960 200 Intake: IV 900 Oral 960 200 Output: Estimated Blood Loss 10 Other: # Voids 1 2 - Exam Physical exam Abdomen surgical incision sites dry soft and not distended slight surgical tenderness active bowel sounds tolerating diet no nausea no vomiting urinating no difficulty - Labs CBC & Chem 7: 09/06/17 06:07 09/07/17 06:24 Labs: Abnormal Lab Results - Last 24 Hours (Table) 09/07/17 Range/Units 06:24 Chloride 111 H (98-107) mmol/L AST 207 H (14-36) U/L ALT 513 H (9-52) U/L Total Protein 5.8 L (6.3-8.2) g/dL Albumin 3.3 L (3.5-5.0) g/dL Microbiology - Last 24 Hours (Table) 09/04/17 21:17 Blood Culture - Preliminary Blood No Growth after 48 hours Assessment and Plan Assessment: Impression Present on admission acute onset right upper quadrant pain with nausea suspect due to acute cholelithiasis Ultrasound gallbladder multiple gallstones seen Elevated AST and ALT with a mildly elevated total bilirubin Postop September 06 laparoscopic cholecystectomy for acute cholecystitis, cholelithiasis and hydrops of gallbladder Plan Continue postop surgical care From a surgical perspective patient is felt to be surgically stable and appropriate proceed with a discharge defer to the timing to the attending Pain control DVT and GI prophylaxis note dictated for Dr. reed The above impression and plan of care have been discussed and directed by signing physician. Shanna Cruz nurse practitioner acting as scribe for signing physician.
--- NOTE | 2017-09-08 08:56 | DS ---
DISCHARGE SUMMARY DATE OF SERVICE: 09/07/2017. FINAL DIAGNOSES: 1. Acute cholelithiasis and cholecystitis, status post laparoscopic cholecystectomy. 2. History of multiple gallstones. 3. Elevated AST, ALT, total bilirubin, possibly secondary to gallstones improved. 4. Possible urinary tract infection. 5. Mild leukopenia. DISCHARGE DISPOSITION: Patient is being discharged in stable condition with guarded prognosis. Surgery cleared the patient for discharge. HISTORY: This 57-year-old with a past history of multiple medical problems as mentioned. The patient treated symptomatically and surgery, Dr. Carter, performed laparoscopic cholecystectomy and AST improved to 207, ALT is 513, alkaline phosphatase within normal limits. Cultures are normal and hepatitis panel is also negative. On exam, vitals are stable. Cardiovascular: S1, S2. Abdomen: Soft, status post surgery. Nervous System: No focal deficits. DISCHARGE ADVICE AND MEDICATIONS: 1. Diet is soft, as tolerated. 2. Follow up with Dr. Carter as advised. 3. Follow up with Dr. Manning, primary physician, in 2-3 days with labs of CBC and CMP. MEDICATIONS: 1. Wellbutrin SR 150 mg p.o. b.i.d. 2. Vitamin D 3000 daily. 3. [place] 5 mg q.4h p.r.n. 4. Synthroid 112 mcg. 5. Multivitamins supplements. MMODL / IJN: [id number] /
== END 2017-09-07 12:55 | disposition home or self-care (01) ==
LOC: EC 18:09 → 6PED 22:36
PROVIDERS: ADMIT Hospitalist; ATTEND Hospitalist
DX: K80.12 Calculus of gallbladder with acute and chronic cholecystitis without obstruction (principal); K82.1 Hydrops of gallbladder; R74.8 Abnormal levels of other serum enzymes; D72.819 Decreased white blood cell count, unspecified; M19.90 Unspecified osteoarthritis, unspecified site; F32.9 Major depressive disorder, single episode, unspecified; E03.9 Hypothyroidism, unspecified; Z90.49 Acquired absence of other specified parts of digestive tract; Z80.3 Family history of malignant neoplasm of breast; Z79.899 Other long term (current) drug therapy; K21.9 Gastro-esophageal reflux disease without esophagitis
CPT/HCPCS: 47562; 96375 ×4; 96361 ×2; 99285; 96365; 96366 ×2; 96372 ×2; 96376 ×2; 36415; 88304; 80053 ×4; 80074; 82150 ×3; 83605; 83690 ×3; 85025 ×3; 81001; 87040; 76705; G0378 ×4; J2250; J2270; J1644 ×3; J2710; S0106 ×3; J2405 ×2; J2001; J3010; J1885 ×4; J2543 ×4; J0330; J2704; C9113 ×3

== ENCOUNTER → 2017-11-23 | Outpatient (CLI) | payer BC ==
--- NOTE | 2017-11-26 11:45 | MM ---
Reason for exam: screening (asymptomatic). Last mammogram was performed 1 year and 1 month ago. History: Patient is postmenopausal. Family history of premenopausal breast cancer in mother at age 46 and breast cancer in grandmother at age 76. Excisional biopsy of the left breast, October 2002. Excisional biopsy of the right breast, January 1987. Physical Findings: A clinical breast exam by your physician is recommended on an annual basis and results should be correlated with mammographic findings. MG 3D Screening Mammo W/Cad Bilateral CC and MLO view(s) were taken. Prior study comparison: October 25, 2016, bilateral MG 3d screening mammo w/cad. October 22, 2015, bilateral MG 3d screening mammo w/cad. The breast tissue is heterogeneously dense. This may lower the sensitivity of mammography. Stable benign calcifications. There is no discrete abnormality. No significant changes when compared with prior studies. ASSESSMENT: Benign, BI-RAD 2 RECOMMENDATION: Routine screening mammogram of both breasts in 1 year.
== END | disposition home or self-care (01) ==
LOC: RADMAMWWP 10:34
PROVIDERS: ATTEND Family Medicine
DX: Z12.31 Encounter for screening mammogram for malignant neoplasm of breast (principal)
CPT/HCPCS: 77063; 77067

== ENCOUNTER → 2018-11-27 | Outpatient (CLI) | payer BC ==
--- NOTE | 2018-11-28 10:00 | MM ---
Reason for exam: screening (asymptomatic). Last mammogram was performed 1 year ago. History: Patient is postmenopausal. Family history of premenopausal breast cancer in mother at age 46 and breast cancer in grandmother at age 76. Excisional biopsy of the left breast, October 2002. Excisional biopsy of the right breast, January 1987. Physical Findings: A clinical breast exam by your physician is recommended on an annual basis and results should be correlated with mammographic findings. MG 3D Screening Mammo W/Cad Bilateral CC and MLO view(s) were taken. Prior study comparison: November 23, 2017, bilateral MG 3d screening mammo w/cad. October 25, 2016, bilateral MG 3d screening mammo w/cad. There are scattered fibroglandular densities. No suspicious abnormality. No significant changes when compared with prior studies. ASSESSMENT: Negative, BI-RAD 1 RECOMMENDATION: Routine screening mammogram of both breasts in 1 year.
== END | disposition home or self-care (01) ==
LOC: RADMAMWWP 09:52
PROVIDERS: ATTEND Family Medicine
DX: Z12.31 Encounter for screening mammogram for malignant neoplasm of breast (principal); Z80.3 Family history of malignant neoplasm of breast
CPT/HCPCS: 77063; 77067

== ENCOUNTER → 2018-12-27 | Outpatient (CLI) | payer BC ==
--- NOTE | 2018-12-27 10:59 | US ---
EXAMINATION TYPE: US liver DATE OF EXAM: 12/27/2018 COMPARISON: NONE CLINICAL HISTORY: 58-year-old female R94.5 Elevated LFT. TECHNIQUE: Multiple sonographic images of the right upper quadrant are obtained. FINDINGS: EXAM MEASUREMENTS: Liver Length: 14.3 cm Gallbladder: Surgically absent CBD: 0.4 cm Right Kidney: 10.2 x 4.4 x 4.8 cm [place] Roofer notes: Extensive overlying midline bowel gas. Pancreas: Only a portion of the pancreatic body is visualized. The remainder is suboptimally visuali zed due to shadowing by bowel gas Liver: cyst noted measuring 1.8 x 2.0 x 1.6cm located within the left liver lobe. There is some nodu lar calcification and thin septation within. Gallbladder: Surgically absent Evidence for sonographic Mejía's sign: no CBD: wnl Right Kidney: No hydronephrosis. IMPRESSION: 1. Mild complexity associated with the 2.0 x 1.8 cm left hepatic cyst. A cystic area previously measu red 1.8 x 1.5 cm. Given the slight increase in size, additional 6 month follow-up ultrasound to reass ess. 2. Status post cholecystectomy. No biliary ductal dilatation.
== END ==
LOC: RADUSWWP 09:31
PROVIDERS: ATTEND Family Medicine
DX: K76.89 Other specified diseases of liver (principal); R79.89 Other specified abnormal findings of blood chemistry; Z90.49 Acquired absence of other specified parts of digestive tract
CPT/HCPCS: 76705

== ENCOUNTER → 2020-04-29 | Outpatient (CLI) | payer OTHER ==
--- NOTE | 2020-04-30 14:45 | MM ---
Reason for exam: screening (asymptomatic). Last mammogram was performed 1 year and 5 months ago. History: Patient is postmenopausal. Family history of premenopausal breast cancer in mother at age 46 and breast cancer in grandmother at age 76. Excisional biopsy of the left breast, October 2002. Excisional biopsy of the right breast, January 1987. Physical Findings: A clinical breast exam by your physician is recommended on an annual basis and results should be correlated with mammographic findings. MG 3D Screening Mammo W/Cad Bilateral CC and MLO view(s) were taken. Prior study comparison: November 27, 2018, bilateral MG 3d screening mammo w/cad. November 23, 2017, bilateral MG 3d screening mammo w/cad. There is chronic nodularity bilaterally. No significant changes when compared with prior studies. ASSESSMENT: Benign, BI-RAD 2 RECOMMENDATION: Routine screening mammogram of both breasts in 1 year.
== END | disposition home or self-care (01) ==
LOC: RADMAMWWP 11:07
PROVIDERS: ATTEND Family Medicine
DX: Z12.31 Encounter for screening mammogram for malignant neoplasm of breast (principal); Z80.3 Family history of malignant neoplasm of breast
CPT/HCPCS: 77063; 77067

== ENCOUNTER → 2021-07-27 | Outpatient (CLI) | payer OTHER ==
--- NOTE | 2021-07-27 08:55 | US ---
EXAMINATION TYPE: US liver DATE OF EXAM: 07/27/2021 COMPARISON: NONE CLINICAL HISTORY: Q44.6 cystic liver ;R74.01 elevated liver. EXAM MEASUREMENTS: Liver Length: 14.7 cm Gallbladder Wall: 0.2 cm CBD: 0.4 cm Right Kidney: 11.5 x 4.5 x 4.9 cm cm Pancreas: Somewhat obscured by bowel gas Liver: liver cyst measuring 1.9 x 1.4 x 1.9cm Gallbladder: Surgically absent Evidence for sonographic Mejía's sign: no CBD: wnl Right Kidney: inferior pole obscured by overlying bowel gas IMPRESSION: Simple hepatic cyst. Otherwise unremarkable study.
== END | disposition home or self-care (01) ==
LOC: RADUSWWP 08:06
PROVIDERS: ATTEND Family Medicine
DX: Q44.6 Cystic disease of liver (principal)
CPT/HCPCS: 76705

== ENCOUNTER → 2021-08-19 | Outpatient (CLI) | payer OTHER ==
--- NOTE | 2021-08-22 09:12 | MM ---
Reason for exam: screening (asymptomatic). Last mammogram was performed 1 year and 4 months ago. History: Patient is postmenopausal. Family history of premenopausal breast cancer in mother at age 46 and breast cancer in grandmother at age 76. Excisional biopsy of the left breast, October 2002. Excisional biopsy of the right breast, January 1987. Physical Findings: A clinical breast exam by your physician is recommended on an annual basis and results should be correlated with mammographic findings. MG 3D Screening Mammo W/Cad Bilateral CC and MLO view(s) were taken. Prior study comparison: April 29, 2020, bilateral MG 3d screening mammo w/cad. November 27, 2018, bilateral MG 3d screening mammo w/cad. There are scattered fibroglandular densities. Finding: There are typically benign grouped/clustered, linear calcifications in the left breast. There is a chronic nodularity bilaterally. ASSESSMENT: Benign, BI-RAD 2 RECOMMENDATION: Routine screening mammogram of both breasts in 1 year.
== END | disposition home or self-care (01) ==
LOC: RADMAMWWP 14:27
PROVIDERS: ATTEND Family Medicine
DX: Z12.31 Encounter for screening mammogram for malignant neoplasm of breast (principal); Z80.3 Family history of malignant neoplasm of breast; Z78.0 Asymptomatic menopausal state
CPT/HCPCS: 77063; 77067

== ENCOUNTER → 2023-09-14 | Outpatient (CLI) | payer OTHER ==
--- NOTE | 2023-09-19 09:31 | MM ---
Reason for Exam: Screening (asymptomatic). Last screening mammogram was performed 12 month(s) ago. Patient History: Menarche at age 13. First Full-Term at age 21. Postmenopausal. Patient has history of breast feeding. 01/1987, Excisional Biopsy on the Right side. 10/2002, Excisional Biopsy on the Left side. Maternal grandmother had breast cancer, age 76. Mother had breast cancer, age 46. Risk Values: Sendy 5 year model risk: 4.4%. NCI Lifetime model risk: 18.6%. Prior Study Comparison: 04/29/2020 Bilateral Screening Mammogram, [facility]. 08/19/2021 Bilateral Screening Mammogram, [facility]. 08/23/2022 Bilateral MG 3D screening mammo w/cad, [facility]. Tissue Density: There are scattered areas of fibroglandular density. Findings: Analyzed By CAD. There is no suspicious group of microcalcifications or new suspicious mass in either breast. Benign calcifications. Stable chronic nodularity bilaterally. Overall Assessment: Benign, BI-RAD 2 Management: Screening Mammogram of both breasts in 1 year. . Patient should continue monthly self-breast exams. A clinical breast exam by your physician is recommended on an annual basis. This exam should not preclude additional follow-up of suspicious palpable abnormalities. Note on Sendy scores and lifetime risk: 1. A Sendy score greater than 3% is considered moderate risk. If this is the case, consider specialist referral to assess eligibility for a risk reducing agent. 2. If overall lifetime risk for the development of breast cancer is 20% or higher, the patient may qualify for future screening with alternating mammogram and breast MRI. Electronically signed and approved by: Ancelmo Yin M.D. Radiolog[facility]
== END | disposition home or self-care (01) ==
LOC: RADMAMWWP 08:26
PROVIDERS: ATTEND Family Medicine
DX: Z12.31 Encounter for screening mammogram for malignant neoplasm of breast (principal); Z78.0 Asymptomatic menopausal state; Z80.3 Family history of malignant neoplasm of breast
CPT/HCPCS: 77063; 77067

== ENCOUNTER → 2023-09-14 | Outpatient (CLI) | payer OTHER ==
--- NOTE | 2023-09-14 09:32 | US ---
EXAMINATION TYPE: US abdomen limited DATE OF EXAM: 09/14/2023 COMPARISON: 07/27/2021 CLINICAL INDICATION: Female, 63 years old with history of R74.01 ELEVATION OF LEVELS OF LIVER TRANSAM INASE L; Patient states elevated LFTs and hx of liver cyst. Cholecystectomy 6 years ago. TECHNIQUE: Multiple sonographic images of the right upper quadrant are obtained. FINDINGS: EXAM MEASUREMENTS: Liver Length: 17.3 cm, mildly enlarged Gallbladder Wall: Surgically absent CBD: 0.3 cm Right Kidney: 9.9 x 4.1 x 4.8 cm RELAY ENGINEER NOTES:*Limited due to overlying bowel and patient body habitus Pancreas: Obscured by bowel gas Liver: There is a 2.3 x 1.7 x 2.4 CM anechoic area seen in the lateral, superior portion of the righ t lobe. This was previously seen in 2021 and measured 1.9 x 1.4 x 1.9cm Gallbladder: Surgically absent Evidence for sonographic Mejía's sign: No CBD: wnl Right Kidney: No hydronephrosis or masses seen as best visualized IMPRESSION: 1. Status post cholecystectomy. 2. No biliary ductal dilatation. 3. A 2.4 cm cyst in the right hepatic lobe.
== END | disposition home or self-care (01) ==
LOC: RADUSWWP 08:29
PROVIDERS: ATTEND Family Medicine
DX: K76.89 Other specified diseases of liver (principal); R74.01 Elevation of levels of liver transaminase levels; R94.5 Abnormal results of liver function studies; Z90.49 Acquired absence of other specified parts of digestive tract
CPT/HCPCS: 76705